=== PATIENT | female | born 1960 | race Caucasian/White ===

== ENCOUNTER 2016-12-03 07:54 | Emergency (ER) | payer OTHER ==
--- NOTE | 2016-12-03 09:23 | ED CLINICAL REPORT ---
Clinical Report - Physicians/Mid Levels [facility] [address] [place] [address] 12/03/2016 7:54 Patient: ZAIRE SLATER Time Seen: 09:00 Dec 03 2016. Arrived- By private vehicle. Historian- patient. CPT: ER phys charges level 3 (#[id number]). HISTORY OF PRESENT ILLNESS Chief Complaint: BACK PAIN. It is described as being moderate in degree and in the area of the lower lumbar spine. The quality is noted to be sharp, aching and "pain". No radiation. 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 ( Patient reports "throbbing" back pain with intermittent painful spasms. Patient states, "when my back spasms, I can't talk and I feel like I'm going to pass out"). History of recent trauma- fall (Patient states, "I tripped on my dog and fell down the stairs two days ago and then my back started hurting."). No numbness, weakness, tingling or trouble walking. and it is still present. No bladder dysfunction, bowel dysfunction, sensory loss or motor loss. Patient notes an injury. Mechanism of injury- she slipped and fell. (fall). No other injury. Similar symptoms previously: Recent medical care: Not recently seen/assessed. REVIEW OF SYSTEMS No fever, chills, difficulty with urination, urinary frequency or skin rash. No headache, sore throat, cough, difficulty breathing or chest pain. No abdominal pain, nausea or vomiting. All systems otherwise negative, except as recorded above. PAST HISTORY LNMP - Last Normal Menstrual Period. Dizziness. CVA - Cerebrovascular Accident. Hypertension. Immunizations. Diabetes Mellitus. --08:03 Neuropathy [RuleOut]. TIA - Transient Ischemic Attack ADDITIONAL SURGERIES: Carpal Tunnel Surgery. Hysterectomy. Left eye. Oophorectomy. Salpingectomy. Medications: Amitriptyline HCl Oral 100 mg, daily (hs). AmLODIPine Besylate Oral 10 mg, daily (morning). Coumadin Oral (Tablet 5 mg) 1-1/2 tablets, daily (except monday and monday when she takes 2 tabs). Gabapentin Oral 400 mg, daily (at night). Insulin humulog. Insulin Lantus, 2x a day (35-40 units). Losartan Potassium Oral 100 mg, 2x a day. Lovastatin Oral 40 mg, 2x a day. Zantac Oral 150 mg, 2x a day. Allergies: Codeine. SOCIAL HISTORY Never smoker. History of drug use: marijuana. No alcohol use. ADDITIONAL NOTES The nursing notes have been reviewed. PHYSICAL EXAM Vital Signs: 12/03/2016 07:57 BP: 157/85. HR: 114. RR: 16. O2 saturation: 99%. Temp: 98.8 F. Pain level now: 06/06. Appearance: Alert. Patient in mild distress. HEENT: Normal external inspection. Neck: Normal inspection. Neck nontender. Painless ROM. CVS: Heart sounds normal. Respiratory: No respiratory distress. Breath sounds normal. Abdomen: No visible injury. Soft and nontender. Back: Muscle spasm of the back. Moderate soft tissue tenderness in the left lower lumbar area (No hematoma or mass. No ecchymosis.). Limited ROM in the back. No vertebral point tenderness. Skin: Skin warm. Normal skin color. No rash. Extremities: Extremities exhibit normal ROM. Extremities nontender. Neuro: Oriented X 3. Mood/affect normal. No motor deficit. No sensory deficit. Reflexes normal. PROGRESS AND PROCEDURES Course of Care: Discussed the high BS and patient says she missed her evening insulin last night but did take it this morning. Patient/family counseled. Disposition: Discharged. Condition: stable. CLINICAL IMPRESSION Single contusion to the lower back.No hematoma or skin abrasion. INSTRUCTIONS Apply moist heat for 15-20 minutes three times a day for one weeks until better. Limit lifting. No strenuous activity. Warnings: GENERAL WARNINGS: Return or contact your physician immediately if your condition worsens or changes unexpectedly, if not improving as expected, or if other problems arise. Your Current Medications: CONTINUE TAKING THE FOLLOWING MEDICATIONS: Amitriptyline HCl Oral : 100 mg daily, hs. AmLODIPine Besylate Oral : 10 mg daily, morning. Coumadin Oral : Tablet 5 mg, 1-1/2 tablets daily, except monday and monday when she takes 2 tabs. Gabapentin Oral : 400 mg daily, at night. Insulin humulog*. Insulin Lantus* : 2x a day, 35-40 units. Losartan Potassium Oral : 100 mg 2x a day. Lovastatin Oral : 40 mg 2x a day. Zantac Oral : 150 mg 2x a day. Prescription Medications: Vicodin 5 mg / 300 mg: take 1 to 2 orally every 6 hours as needed for pain. Dispense fifteen (15). No refills. Substitution is permissible. Robaxin 750 mg: Take 2 orally every 6 hours as needed for muscle spasm. Dispense thirty (30). No refills. Substitution is permissible. Follow-up: Follow up with your doctor in one week. Call for an appointment. Understanding of the discharge instructions verbalized by patient. (Electronically signed by Quan Correa MD 12/04/2016 12:04)
--- NOTE | 2016-12-03 09:23 | ED NURSING NOTES ---
Clinical Report - Nurses [facility] [address] [place] [address] 12/03/2016 7:54 Patient: ZAIRE SLATER TRIAGE Triage time 07:55. Acuity: LEVEL 4. Chief Complaint: BACK PAIN. 08:07 12/03/16. Alert. No acute distress. SEPSIS SCREEN: Sepsis Screen. Negative (no infection suspected/documented). ROEL COMA SCORE: Roel Coma Scale: 15- eyes open spontaneously (4); best verbal response- oriented x 4 (5); best motor response- obeys commands (6). --08:07 Yareli Adam R.N. 07:57 12/03/16. BP: 157/85. HR: 114. RR: 16. O2 saturation: 99%. Temp: 98.8 F. Pain level now: 06/06. --08:07 Yareli Adam R.N. 08:10 12/03/16. --08:10 Yareli Adam R.N. Weight: 58.5 kg stated. Height/Length: 63 inches. BMI: 22.9. --08:06 Yareli Adam R.N. Medications Amitriptyline HCl Oral 100 mg, daily (hs). AmLODIPine Besylate Oral 10 mg, daily (morning). Coumadin Oral (Tablet 5 mg) 1-1/2 tablets, daily (except monday and monday when she takes 2 tabs). Gabapentin Oral 400 mg, daily (at night). Insulin humulog. Insulin Lantus, 2x a day (35-40 units). Losartan Potassium Oral 100 mg, 2x a day. Lovastatin Oral 40 mg, 2x a day. Zantac Oral 150 mg, 2x a day. --08:03 Yareli Adam R.N. Allergies Codeine. --08:03 Yareli Adam R.N. History Arrived by EMS. Historian: patient. Primary physician (Dr. Austin Smith at [facility]). Onset. (two days ago). ( Patient reports "throbbing" back pain with intermittent painful spasms. Patient states, "when my back spasms, I can't talk and I feel like I'm going to pass out"). History of recent trauma- fall (Patient states, "I tripped on my dog and fell down the stairs two days ago and then my back started hurting."). No numbness, weakness, tingling or trouble walking. 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 PAST MEDICAL HX: Tetanus status: unknown. Immunizations: up-to-date. Denies current . SOCIAL HX: Never smoker. History of heavy drug use: marijuana. No alcohol use. FALL RISK ASSESSMENT: Fall risk assessment completed. No fall risk identified. NUTRITIONAL RISK ASSESSMENT: The nutritional risk assessment revealed no deficiencies. FUNCTIONAL ASSESSMENT: Functional assessment: no impairments noted. LEARNING NEEDS ASSESSMENT: The learning needs assessment revealed no barriers. SKIN INTEGRITY ASSESSMENT: Skin integrity risk assessment completed. No skin integrity risk identified. --08:07 Yareli Adam R.N. Treatment RESOURCE DEVELOPMENT MANAGER: Finger stick glucose performed (420). BP: 200 systolic. HR: 110. ( EMS reports that patient did not have her insulin this morning.). --08:10 aYreli Adam R.N. PROBLEMS: LNMP - Last Normal Menstrual Period. Dizziness. CVA - Cerebrovascular Accident. Hypertension. Immunizations. Diabetes Mellitus. --08:03 Yareli Adam R.N. Neuropathy [RuleOut]. TIA - Transient Ischemic Attack [RuleOut]. --08:03 Yareli Adam R.N. ADDITIONAL SURGERIES: Carpal Tunnel Surgery. Hysterectomy. Left eye. Oophorectomy. Salpingectomy. --08:03 Yareli Adam R.N. Interventions ID band on patient. To treatment room. --08:07 Yareli Adam R.N. PHYSICAL ASSESSMENT 08:08 12/03/16. To room via stretcher. GENERAL / NEURO / PSYCH: Alert. Oriented X 4. Appears in no acute distress. RESPIRATORY: Respirations not labored. CVS: Capillary refill less than 2 seconds. EXTREMITIES: ROM of extremities within normal limits. BACK: Normal inspection of the neck and back. No neck or back tenderness. ROM of neck and back within normal limits. --08:08 Yareli Adam R.N. NURSING PROGRESS NOTES 08:09 12/03/16. Two patient identifiers checked. Call light placed in reach. Side rails up x 2. Bed placed in lowest position. Brakes of bed on. Patient ready for evaluation- chart flagged and notification provided. --08:09 Yareli Adma R.N. 08:15. Finger stick glucose: 354 mg/dL; performed by tech; result shown to the ED physician. --08:37 Suellen Mace Cold pack applied to back. ( First contact with pt. Pt appears tearful; requesting something for pain. Provider notified.). --08:55 Guerda Guadalupe R.N. DISPOSITION / DISCHARGE 09:48 12/03/16. Departure time: 944. ( MD aware of discharge HR). No learning barriers present. Discharge instructions provided and reviewed with the patient. Reviewed medication(s) side effects, precautions, dosing and course information. Prescription(s) given to the patient. Patient verbalized understanding. Written instructions provided in Latvian. The patient was discharged by the physician. She was discharged home. She left the Emergency Department ambulatory and via private vehicle and (roomate). --09:48 Maria A Doran R.N. 09:48 12/03/16. BP: 108/69. HR: 111. RR: 16. O2 saturation: 100%. Pain level now 1010. --09:48 Maria A Doran R.N. Locked/Released at 12/03/2016 19:12 by Yareli Adam R.N.
--- NOTE | 2016-12-03 09:23 | ED NURSING NOTES ---
Clinical Report - Nurses [facility] [address] [place] [address] 12/03/2016 7:54 Patient: ZAIRE SLATER TRIAGE Triage time 07:55. Acuity: LEVEL 4. Chief Complaint: BACK PAIN. 08:07 12/03/16. Alert. No acute distress. SEPSIS SCREEN: Sepsis Screen. Negative (no infection suspected/documented). ROEL COMA SCORE: Roel Coma Scale: 15- eyes open spontaneously (4); best verbal response- oriented x 4 (5); best motor response- obeys commands (6). --08:07 Yareli Adam R.N. 07:57 12/03/16. BP: 157/85. HR: 114. RR: 16. O2 saturation: 99%. Temp: 98.8 F. Pain level now: 06/06. --08:07 Yareli Adam R.N. 08:10 12/03/16. --08:10 Yareli Adam R.N. Weight: 58.5 kg stated. Height/Length: 63 inches. BMI: 22.9. --08:06 Yareli Adam R.N. Medications Amitriptyline HCl Oral 100 mg, daily (hs). AmLODIPine Besylate Oral 10 mg, daily (morning). Coumadin Oral (Tablet 5 mg) 1-1/2 tablets, daily (except monday and monday when she takes 2 tabs). Gabapentin Oral 400 mg, daily (at night). Insulin humulog. Insulin Lantus, 2x a day (35-40 units). Losartan Potassium Oral 100 mg, 2x a day. Lovastatin Oral 40 mg, 2x a day. Zantac Oral 150 mg, 2x a day. --08:03 Yareli Adam R.N. Allergies Codeine. --08:03 Yareli Adam R.N. History Arrived by EMS. Historian: patient. Primary physician (Dr. Austin Smith at [facility]). Onset. (two days ago). ( Patient reports "throbbing" back pain with intermittent painful spasms. Patient states, "when my back spasms, I can't talk and I feel like I'm going to pass out"). History of recent trauma- fall (Patient states, "I tripped on my dog and fell down the stairs two days ago and then my back started hurting."). No numbness, weakness, tingling or trouble walking. 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 PAST MEDICAL HX: Tetanus status: unknown. Immunizations: up-to-date. Denies current . SOCIAL HX: Never smoker. History of heavy drug use: marijuana. No alcohol use. FALL RISK ASSESSMENT: Fall risk assessment completed. No fall risk identified. NUTRITIONAL RISK ASSESSMENT: The nutritional risk assessment revealed no deficiencies. FUNCTIONAL ASSESSMENT: Functional assessment: no impairments noted. LEARNING NEEDS ASSESSMENT: The learning needs assessment revealed no barriers. SKIN INTEGRITY ASSESSMENT: Skin integrity risk assessment completed. No skin integrity risk identified. --08:07 Yareli Adam R.N. Treatment SECURITY SUPERVISOR: Finger stick glucose performed (420). BP: 200 systolic. HR: 110. ( EMS reports that patient did not have her insulin this morning.). --08:10 Yareli Adam R.N. PROBLEMS: LNMP - Last Normal Menstrual Period. Dizziness. CVA - Cerebrovascular Accident. Hypertension. Immunizations. Diabetes Mellitus. --08:03 Yareli Adam R.N. Neuropathy [RuleOut]. TIA - Transient Ischemic Attack [RuleOut]. --08:03 Yareli Adam R.N. ADDITIONAL SURGERIES: Carpal Tunnel Surgery. Hysterectomy. Left eye. Oophorectomy. Salpingectomy. --08:03 Yareli Adam R.N. Interventions ID band on patient. To treatment room. --08:07 Yareli Adam R.N. PHYSICAL ASSESSMENT 08:08 12/03/16. To room via stretcher. GENERAL / NEURO / PSYCH: Alert. Oriented X 4. Appears in no acute distress. RESPIRATORY: Respirations not labored. CVS: Capillary refill less than 2 seconds. EXTREMITIES: ROM of extremities within normal limits. BACK: Normal inspection of the neck and back. No neck or back tenderness. ROM of neck and back within normal limits. --08:08 Yareli Adam R.N. NURSING PROGRESS NOTES 08:09 12/03/16. Two patient identifiers checked. Call light placed in reach. Side rails up x 2. Bed placed in lowest position. Brakes of bed on. Patient ready for evaluation- chart flagged and notification provided. --08:09 Yareli Adam R.N. 08:15. Finger stick glucose: 354 mg/dL; performed by tech; result shown to the ED physician. --08:37 Suellen Mace Cold pack applied to back. ( First contact with pt. Pt appears tearful; requesting something for pain. Provider notified.). --08:55 Guerda Guadalupe R.N. DISPOSITION / DISCHARGE 09:48 12/03/16. Departure time: 944. ( MD aware of discharge HR). No learning barriers present. Discharge instructions provided and reviewed with the patient. Reviewed medication(s) side effects, precautions, dosing and course information. Prescription(s) given to the patient. Patient verbalized understanding. Written instructions provided in Wolof. The patient was discharged by the physician. She was discharged home. She left the Emergency Department ambulatory and via private vehicle and (roomate). --09:48 Maria A Doran R.N. 09:48 12/03/16. BP: 108/69. HR: 111. RR: 16. O2 saturation: 100%. Pain level now 1010. --09:48 Maria A Doran R.N. Locked/Released at 12/03/2016 19:12 by Yareli Adam R.N.
--- NOTE | 2016-12-03 09:23 | ED CLINICAL REPORT ---
Clinical Report - Physicians/Mid Levels [facility] [address] [place] [address] 12/03/2016 7:54 Patient: ZAIRE SLATER Time Seen: 09:00 Dec 03 2016. Arrived- By private vehicle. Historian- patient. CPT: ER phys charges level 3 (#[id number]). HISTORY OF PRESENT ILLNESS Chief Complaint: BACK PAIN. It is described as being moderate in degree and in the area of the lower lumbar spine. The quality is noted to be sharp, aching and "pain". No radiation. 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 ( Patient reports "throbbing" back pain with intermittent painful spasms. Patient states, "when my back spasms, I can't talk and I feel like I'm going to pass out"). History of recent trauma- fall (Patient states, "I tripped on my dog and fell down the stairs two days ago and then my back started hurting."). No numbness, weakness, tingling or trouble walking. and it is still present. No bladder dysfunction, bowel dysfunction, sensory loss or motor loss. Patient notes an injury. Mechanism of injury- she slipped and fell. (fall). No other injury. Similar symptoms previously: Recent medical care: Not recently seen/assessed. REVIEW OF SYSTEMS No fever, chills, difficulty with urination, urinary frequency or skin rash. No headache, sore throat, cough, difficulty breathing or chest pain. No abdominal pain, nausea or vomiting. All systems otherwise negative, except as recorded above. PAST HISTORY LNMP - Last Normal Menstrual Period. Dizziness. CVA - Cerebrovascular Accident. Hypertension. Immunizations. Diabetes Mellitus. --08:03 Neuropathy [RuleOut]. TIA - Transient Ischemic Attack ADDITIONAL SURGERIES: Carpal Tunnel Surgery. Hysterectomy. Left eye. Oophorectomy. Salpingectomy. Medications: Amitriptyline HCl Oral 100 mg, daily (hs). AmLODIPine Besylate Oral 10 mg, daily (morning). Coumadin Oral (Tablet 5 mg) 1-1/2 tablets, daily (except monday and monday when she takes 2 tabs). Gabapentin Oral 400 mg, daily (at night). Insulin humulog. Insulin Lantus, 2x a day (35-40 units). Losartan Potassium Oral 100 mg, 2x a day. Lovastatin Oral 40 mg, 2x a day. Zantac Oral 150 mg, 2x a day. Allergies: Codeine. SOCIAL HISTORY Never smoker. History of drug use: marijuana. No alcohol use. ADDITIONAL NOTES The nursing notes have been reviewed. PHYSICAL EXAM Vital Signs: 12/03/2016 07:57 BP: 157/85. HR: 114. RR: 16. O2 saturation: 99%. Temp: 98.8 F. Pain level now: 06/06. Appearance: Alert. Patient in mild distress. HEENT: Normal external inspection. Neck: Normal inspection. Neck nontender. Painless ROM. CVS: Heart sounds normal. Respiratory: No respiratory distress. Breath sounds normal. Abdomen: No visible injury. Soft and nontender. Back: Muscle spasm of the back. Moderate soft tissue tenderness in the left lower lumbar area (No hematoma or mass. No ecchymosis.). Limited ROM in the back. No vertebral point tenderness. Skin: Skin warm. Normal skin color. No rash. Extremities: Extremities exhibit normal ROM. Extremities nontender. Neuro: Oriented X 3. Mood/affect normal. No motor deficit. No sensory deficit. Reflexes normal. PROGRESS AND PROCEDURES Course of Care: Discussed the high BS and patient says she missed her evening insulin last night but did take it this morning. Patient/family counseled. Disposition: Discharged. Condition: stable. CLINICAL IMPRESSION Single contusion to the lower back.No hematoma or skin abrasion. INSTRUCTIONS Apply moist heat for 15-20 minutes three times a day for one weeks until better. Limit lifting. No strenuous activity. Warnings: GENERAL WARNINGS: Return or contact your physician immediately if your condition worsens or changes unexpectedly, if not improving as expected, or if other problems arise. Your Current Medications: CONTINUE TAKING THE FOLLOWING MEDICATIONS: Amitriptyline HCl Oral : 100 mg daily, hs. AmLODIPine Besylate Oral : 10 mg daily, morning. Coumadin Oral : Tablet 5 mg, 1-1/2 tablets daily, except monday and monday when she takes 2 tabs. Gabapentin Oral : 400 mg daily, at night. Insulin humulog*. Insulin Lantus* : 2x a day, 35-40 units. Losartan Potassium Oral : 100 mg 2x a day. Lovastatin Oral : 40 mg 2x a day. Zantac Oral : 150 mg 2x a day. Prescription Medications: Vicodin 5 mg / 300 mg: take 1 to 2 orally every 6 hours as needed for pain. Dispense fifteen (15). No refills. Substitution is permissible. Robaxin 750 mg: Take 2 orally every 6 hours as needed for muscle spasm. Dispense thirty (30). No refills. Substitution is permissible. Follow-up: Follow up with your doctor in one week. Call for an appointment. Understanding of the discharge instructions verbalized by patient. (Electronically signed by Quan Correa MD 12/04/2016 12:04)
--- NOTE | 2016-12-04 12:05 | ED DISCHARGE INSTRUCTIONS ---
Patient: ZAIRE SLATER General Instructions [facility] VisitID: [id number] [place] [address] 56y, F Registration Date/Time: 12/03/2016 Single contusion to the lower back.No hematoma or skin abrasion. INSTRUCTIONS Apply moist heat for 15-20 minutes three times a day for one weeks until better. Limit lifting. No strenuous activity. Warnings: GENERAL WARNINGS: Return or contact your physician immediately if your condition worsens or changes unexpectedly, if not improving as expected, or if other problems arise. Your Current Medications: CONTINUE TAKING THE FOLLOWING MEDICATIONS: Amitriptyline HCl Oral : 100 mg daily, hs. AmLODIPine Besylate Oral : 10 mg daily, morning. Coumadin Oral : Tablet 5 mg, 1-1/2 tablets daily, except monday and monday when she takes 2 tabs. Gabapentin Oral : 400 mg daily, at night. Insulin humulog*. Insulin Lantus* : 2x a day, 35-40 units. Losartan Potassium Oral : 100 mg 2x a day. Lovastatin Oral : 40 mg 2x a day. Zantac Oral : 150 mg 2x a day. Prescription Medications: Vicodin 5 mg / 300 mg: take 1 to 2 orally every 6 hours as needed for pain. Dispense fifteen (15). No refills. Substitution is permissible. Robaxin 750 mg: Take 2 orally every 6 hours as needed for muscle spasm. Dispense thirty (30). No refills. Substitution is permissible. Follow-up: Follow up with your doctor in one week. Call for an appointment. Understanding of the discharge instructions verbalized by patient. ADDITIONAL INFORMATION Contusion,Soft Tissue You have a CONTUSION, which is a bruise with swelling and some bleeding under the skin. There are no broken bones. This injury takes a few days to a few weeks to heal. Home Care: 1) Keep the injured part elevated to reduce pain and swelling. This is especially important during the first 48 hours. 2) Make an ice pack (ice cubes in a plastic bag, wrapped in a towel) and apply for 20 minutes every 1-2 hours the first day. Continue this 3-4 times a day until the pain and swelling goes away. 3) You may use acetaminophen (Tylenol) or ibuprofen (Motrin, Advil) to control pain, unless another pain medicine was prescribed. [ NOTE : If you have chronic liver or kidney disease or ever had a stomach ulcer or GI bleeding, talk with your doctor before using these medicines.] Follow Up with your doctor or this facility if you are not improving within the next THREE days. [NOTE: If X-rays were taken, they will be reviewed by a radiologist. You will be notified of any new findings that may affect your care.] Get Prompt Medical Attention if any of the following occur: -- Pain or swelling increases -- Injured arm or leg becomes cold, blue, numb or tingly -- Redness, warmth or drainage from the skin You have been given the following additional information: Contusion, Soft Tissue Limit lifting. No strenuous activity. (Electronically signed by Quan Correa MD 12/04/2016 12:04)
--- NOTE | 2016-12-04 12:05 | ED MED RECONCILIATION SUMMARY ---
Patient: AMANDA SLATERICA Althea Medication Reconciliation Report [facility] VisitID: [id number] [address] [place] [address] 56y, F Registration Date/Time: 12/03/2016 Weight: 58.5 kg Height/Length: 63 in. BMI: 22.9 ALLERGIES: Codeine The patient's Home Medications are listed below: CONTINUE TAKING THE FOLLOWING MEDICATIONS: Amitriptyline HCl Oral 100 mg, daily, hs AmLODIPine Besylate Oral 10 mg, daily, morning Coumadin Oral (5 mg) 1-1/2 tablets, daily, except monday and monday when she takes 2 tabs Gabapentin Oral 400 mg, daily, at night Insulin humulog Insulin Lantus, 2x a day, 35-40 units Losartan Potassium Oral 100 mg, 2x a day Lovastatin Oral 40 mg, 2x a day Zantac Oral 150 mg, 2x a day The source(s) of the original Home Medication information: Not obtained. The following Medications were given to the patient in the Emergency Department: None. The following Medications were prescribed to the patient: Vicodin 5 mg / 300 mg: take 1 to 2 orally every 6 hours as needed for pain. Dispense fifteen (15). No refills. Substitution is permissible. -- Quan Correa MD Robaxin 750 mg: Take 2 orally every 6 hours as needed for muscle spasm. Dispense thirty (30). No refills. Substitution is permissible. -- Quan Correa MD
--- NOTE | 2016-12-04 12:05 | ED MAR SUMMARY ---
..... Medication Administration Record [facility] [address] [place], [place] [id number] Patient: ZAIRE SLATER Visit ID: [id number] 56y, F Weight: 58.5 kg Height/Length: 63 in BMI: 22.9 ALLERGIES: Codeine
--- NOTE | 2016-12-04 12:05 | ED MED RECONCILIATION SUMMARY ---
Patient: AMANDA SLATERICA Althea Medication Reconciliation Report [facility] VisitID: [id number] [address] [place] [address] 56y, F Registration Date/Time: 12/03/2016 Weight: 58.5 kg Height/Length: 63 in. BMI: 22.9 ALLERGIES: Codeine The patient's Home Medications are listed below: CONTINUE TAKING THE FOLLOWING MEDICATIONS: Amitriptyline HCl Oral 100 mg, daily, hs AmLODIPine Besylate Oral 10 mg, daily, morning Coumadin Oral (5 mg) 1-1/2 tablets, daily, except monday and monday when she takes 2 tabs Gabapentin Oral 400 mg, daily, at night Insulin humulog Insulin Lantus, 2x a day, 35-40 units Losartan Potassium Oral 100 mg, 2x a day Lovastatin Oral 40 mg, 2x a day Zantac Oral 150 mg, 2x a day The source(s) of the original Home Medication information: Not obtained. The following Medications were given to the patient in the Emergency Department: None. The following Medications were prescribed to the patient: Vicodin 5 mg / 300 mg: take 1 to 2 orally every 6 hours as needed for pain. Dispense fifteen (15). No refills. Substitution is permissible. -- Quan Correa MD Robaxin 750 mg: Take 2 orally every 6 hours as needed for muscle spasm. Dispense thirty (30). No refills. Substitution is permissible. -- Quan Correa MD
--- NOTE | 2016-12-04 12:05 | ED MAR SUMMARY ---
..... Medication Administration Record [facility] [address] [place], [place] [id number] Patient: ZAIRE SLATER Visit ID: [id number] 56y, F Weight: 58.5 kg Height/Length: 63 in BMI: 22.9 ALLERGIES: Codeine
== END 2016-12-03 09:45 | disposition home or self-care (01) ==
LOC: ED SRH 07:54
DX: S30.0XXA Contusion of lower back and pelvis, initial encounter (principal); W10.9XXA Fall (on) (from) unspecified stairs and steps, initial encounter; Y93.01 Activity, walking, marching and hiking; Y92.009 Unspecified place in unspecified non-institutional (private) residence as the place of occurrence of the external cause; I10 Essential (primary) hypertension; E11.9 Type 2 diabetes mellitus without complications; Z86.73 Personal history of transient ischemic attack (TIA), and cerebral infarction without residual deficits; Z79.01 Long term (current) use of anticoagulants; Z79.899 Other long term (current) drug therapy